=== PATIENT | male | born 1990 | race Caucasian/White ===

== ENCOUNTER 2021-04-22 09:06 | Emergency (ER) | payer SELFPAY ==
[~2021-04-22] VITALS: Ht 165.1 cm; Wt 52.3 kg
[2021-04-22 09:23] VITALS: TEMP 98.8
[2021-04-22 10:11] LABS: COLLECTION METHOD CLEAN CATCH
[2021-04-22 10:25] LABS: TRICYCLIC ANTIDEPRESS URINE NEGATIVE
[2021-04-22 10:34] LABS: MUCOUS Present (NOT PRESENT); PH 7 (5-8); SQUAMOUS EPITHELIAL None Seen /hpf (0-10); URINE APPEARANCE Cloudy (CLEAR/HAZY); URINE BACTERIA Rare /hpf (NONE SEEN); URINE BILIRUBIN Negative (NEGATIVE); URINE BLOOD Negative (NEGATIVE); URINE COLOR Yellow (YELLOW); URINE GLUCOSE Negative (NEGATIVE); URINE KETONE Negative (NEGATIVE); URINE LEUKOCYTE ESTERASE Negative (NEGATIVE); URINE NITRATE Negative (NEGATIVE); URINE PROTEIN(semi-quant) Negative (NEGATIVE); URINE RBC None Seen /hpf (0-2)
--- NOTE | 2021-04-22 11:13 | NUR ---
[employer] [employer] met with patient in response to consult for drug and alcohol resources. Per RN, patient is interested in going somewhere for detox. SW attempted to meet with patient, however he spoke very softly and was difficult for SW to understand. SW asked patient to speak up with no sucess. Patient mentioned that he has been staying in [place] and has someone waiting on him in the parking lot. SW provided drug and alcohol resources and reviewed phone numbers for the nearest detox beds. SW advised patient he would need to contact the detox facilities to check for bed availability. SW also reviewed outpatient services available in the area. Patient stated "okay". SW collaborated the above information to RN.
[2021-04-22 11:36] VITALS: BP 112/74; PULSE 99
== END 2021-04-22 11:36 | disposition home or self-care (01) ==
LOC: COL.ER 09:06
PROVIDERS: Emergency Medicine
DX: F15.93 Other stimulant use, unspecified with withdrawal (principal); F17.210 Nicotine dependence, cigarettes, uncomplicated